=== PATIENT | male | born 1985 | race Asian ===

== ENCOUNTER 2017-06-26 13:52 | Day surgery (SDC) | payer OTHER ==
[~2017-06-26] VITALS: Ht 177.8 cm; Wt 105.9 kg
[2017-06-26 13:50] VITALS: BP 121/74; PULSE 70; RESP 21; Ht 177.8 cm; Wt 105.9 kg
[2017-06-26] MEDS ORDERED: LIDOCAINE 1%/EPI 30 ML INJ ONE (17:11)
[2017-06-26] MEDS ORDERED: COCAINE 4% 4 ML TOP ONE (17:12)
[2017-06-26] MEDS ORDERED: EPINEPHrine 1 MG/ML 30 ML INJ ONE (17:12)
[2017-06-26] MEDS ORDERED: BACITRACIN/POLYMYXIN 28.35 GM OINT TOP ONE (17:12)
[2017-06-26] MEDS ORDERED: MIDAZOLAM 1 MG/ML 2 ML INJ ONE (17:23)
--- NOTE | 2017-06-26 17:36 | HPN ---
Date/Time of Note Date/Time of Note DATE: 06/26/17 TIME: 17:36 Interval H&P Admission Note Pt. seen H&P reviewed: No system changes SYDNEE CARRASCO MD Jun 26, 2017 17:36
[2017-06-26] MEDS ORDERED: LIDOCAINE 2% (SDV) 5 ML INJ ONE (18:28)
[2017-06-26] MEDS ORDERED: ONDANSETRON 4 MG INJ ONE (18:28)
[2017-06-26] MEDS ORDERED: PROPOFOL 20 ML ONE (18:28)
[2017-06-26] MEDS ORDERED: GLYCOPYRROLATE 0.4 MG INJ ONE (18:28)
[2017-06-26] MEDS ORDERED: CEFAZOLIN 1 GM INJ ONE (18:28)
[2017-06-26] MEDS ORDERED: NEOSTIGMINE 3 MG/3 ML SYRINGE ONE (18:28)
[2017-06-26] MEDS ORDERED: ROCURONIUM 50 MG INJ ONE (18:28)
[2017-06-26] MEDS ORDERED: HYDROmorphONE (0.2 MG/ML) 10ML SYG IV PRN ×2 (18:30)
[2017-06-26] MEDS ORDERED: MEPERIDINE 25 MG INJ IV PRN (18:30)
[2017-06-26] MEDS ORDERED: ONDANSETRON 4 MG INJ IV PRN (18:30)
[2017-06-26] MEDS ORDERED: HYDROCODONE/APAP (5/325) TAB PO PRN (18:30)
[2017-06-26] MEDS ORDERED: DIPHENHYDRAMINE 50 MG INJ IV PRN (18:30)
--- NOTE | 2017-06-26 18:31 | OPR ---
Date/Time of Note Date/Time of Note DATE: 06/26/17 TIME: 18:27 Operative Report Procedure Date: Jun 26, 2017 Preoperative Diagnosis DNS, ITH, Chronic tonsillitis, tonsillar hypertrophy Postoperative Diagnosis Same Operation/Procedure Performed Tonsillectomy, Septoplasty, Submucous resection of inferior turbinates. Surgeon see signature line Unit Educator None Anesthesia Type: general Estimated Blood Loss: 10 - 50 ml's Transfusion none Specimen Tonsils Grafts/Implants none Complications none Pt Condition Post Procedure: stable Disposition: PACU Indications Nasal congestion. Chronic tonsillitis Procedure Description Description of procedure: The patient was identified in the holding area. We had a discussion to confirm understanding of all indications risks benefits alternatives and postoperative care associated with the operation. The patient signed informed consent was taken to the operating room. The patient was laid supine on the operating room table and general anesthesia was achieved without difficulty. The face was draped in sterile fashion and the nose was packed with 4% cocaine pledgets. The nasal septum was infiltrated with 5 cc of 1% lidocaine with epinephrine in the submucoperiosteal plane bilaterally. A left sided Forsyth incision was made and submucoperichondreal flaps were raised. The bony cartilaginous junction of the septum was identified and entered. A deviated segments of bone and cartilage were isolated. A double- action scissor was used to transect the bony deviated segment of the skull base after which a Sonu forcep was used to resect deviated segment of bone and cartilage. Care was taken to avoid excess cartilaginous resection. The flaps were returned to normal position and anterior rhinoscopy reveals midline septum. At this point the right inferior turbinate was medialized with a [place] elevator. The Coblation wand on a setting of 6 was used to enter the turbinate in the inferior medial submucosal compartment. 10 seconds of Coblation were performed at the 3rd 2nd and 1st fernandez after which the turbinate was crushed laterally into the lateral nasal wall with a Ashraf elevator. The contralateral turbinate was addressed in similar fashion to complete the bilateral submucous resection and lateral fracturing of the inferior turbinates. Septal flaps were secured with a 40 fast-absorbing gut whip stitch. A Merocel pack was placed on each side. A McIvor mouth gag was placed and used to retract the oral cavity open, taking care to avoid damage to the teeth. The oral cavity and pharynx were inspected and palpated to reveal symmetric tonsil hypertrophy. At this point the right palatine tonsil was grabbed superiorly with a curved Estella clamp. It was retracted medially and monopolar cautery was used to enter the peritonsillar space. Dissection of the tonsil commenced in a superior to inferior fashion until it was completely resected. Suction Bovie cautery was used for spot hemostasis. At this point, the contralateral tonsil was removed in the exact similar fashion. There was moderate bleeding and oozing easily controlled with monopolar cautery. Copious irrigation and suctioning was performed. Secondary inspection revealed no bleeding or oozing. The patient was awakened, extubated and taken to the PACU in stable condition. Complications: None SYDNEE CARRASCO MD Jun 26, 2017 18:31
[2017-06-26 18:40] VITALS: BP 141/80; PULSE 77; RESP 22
[2017-06-26 18:45] VITALS: BP 144/76; PULSE 78; RESP 18
[2017-06-26] MEDS ORDERED: FENTAnyl 50 MCG/ML VIAL ONE (18:47)
[2017-06-26 18:50] VITALS: BP 144/78; PULSE 78; RESP 19
[2017-06-26] MEDS: FENTAnyl 50 MCG/ML VIAL IV PRN ×2 (18:57→19:08)
== END 2017-06-26 19:45 | disposition home or self-care (01) ==
LOC: SDS 13:52
PROVIDERS: ATTEND Otolaryngology
DX: J34.2 Deviated nasal septum (principal); E78.5 Hyperlipidemia, unspecified; E66.09 Other obesity due to excess calories
CPT/HCPCS: 30140; 30520; 42826; J0690; J2250; J2405; J2710; J3010; Z7512; Z7610; 88302; J0171